=== PATIENT | male | born 1995 | race Caucasian/White ===

== ENCOUNTER 2017-03-28 10:34 | Emergency (ER) | payer BC, OTHER ==
[~2017-03-28 10:34] MED LIST: Sodium Chloride Irrig Solution 250 ML BOT ONE
[2017-03-28] MEDS ORDERED: Lidocaine 1% w/Epinephrine 1:100K 20 ML VIAL ONE (11:01)
[2017-03-28] MEDS ORDERED: Cephalexin 500 MG CAP ONE (11:26)
[2017-03-28] MEDS ORDERED: Naproxen 500 MG TAB ONE (11:26)
[2017-03-28] MEDS ORDERED: HYDROcodone/Acetaminophen 10/325 mg Tablet ONE (11:26)
[2017-03-28] MEDS ORDERED: Triple Antibiotic Oint 1 GM Packet ONE (11:26)
== END 2017-03-28 11:35 | disposition home or self-care (01) ==
LOC: MADERS 10:34
DX: S51.812A Laceration without foreign body of left forearm, initial encounter (principal); W26.0XXA Contact with knife, initial encounter
CPT/HCPCS: 12001; J2001